=== PATIENT | female | born 1985 | race African-American/Black ===

== ENCOUNTER 2017-04-27 16:02 | Emergency (ER) | payer SELFPAY ==
[~2017-04-27] VITALS: Ht 167.6 cm; Wt 110.2 kg
[2017-04-27 17:06] VITALS: BP 119/84
== END 2017-04-27 17:07 | disposition home or self-care (01) ==
LOC: EME 16:02
DX: T63.441A Toxic effect of venom of bees, accidental (unintentional), initial encounter (principal); R05 Cough
CPT/HCPCS: 99281; 99283